=== PATIENT | female | born 1980 | race Caucasian/White ===

== ENCOUNTER 2017-01-14 18:29 | Emergency (ER) | payer OTHER ==
[~2017-01-14] VITALS: Wt 108.9 kg
[2017-01-14] MEDS ORDERED: ZOFRAN ODT4 MG SL (19:16)
[2017-01-14] MEDS ORDERED: AUGMENTIN 875-875 MG PO (19:16)
== END 2017-01-14 19:10 | disposition home or self-care (01) ==
LOC: ED 18:29
DX: J02.0 Streptococcal pharyngitis (principal)

== ENCOUNTER 2017-01-22 18:40 | Emergency (ER) | payer OTHER ==
[~2017-01-22] VITALS: Ht 160 cm; Wt 108.9 kg
[~2017-01-22 18:40] MED LIST: AUGMENTIN 875-875 MG PO; ZOFRAN ODT4 MG SL
[2017-01-22] MEDS ORDERED: 'PARAFON FORTE500 M1 PO (19:07)
[2017-01-22] MEDS ORDERED: NAPROSYN500 MG PO (19:07)
== END 2017-01-22 19:48 | disposition home or self-care (01) ==
LOC: ED 18:40
DX: S93.401A Sprain of unspecified ligament of right ankle, initial encounter (principal); M54.6 Pain in thoracic spine; R03.0 Elevated blood-pressure reading, without diagnosis of hypertension; X58.XXXA Exposure to other specified factors, initial encounter; Y93.89 Activity, other specified; Y92.9 Unspecified place or not applicable; Y99.9 Unspecified external cause status